=== PATIENT | female | born 2000 | race Caucasian/White ===

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

== ENCOUNTER 2022-02-04 12:54 | Emergency (ER) | payer MEDICAID, SELFPAY ==
[2022-02-04 12:55] VITALS: BP 160/94; PULSE 72; RESP 15; TEMP 36.7; O2SAT 98; BMI 37.8
--- NOTE | 2022-02-04 13:29 | RAD_ITS ---
STUDY: X-RAY - LEFT FOOT CLINICAL: Lateral left foot pain. TECHNIQUE: 3 view(s) of the foot. COMPARISON: None. FINDINGS: Normal talus, calcaneus, and tarsal bones. Normal visualized subtalar, talonavicular, calcaneocuboid, tarsal and tarsometatarsal articulations. Normal metatarsi. Normal metatarsophalangeal joint of the great toe. Normal tibial and fibular sesamoid bones. There is a bipartite fibular sesamoid. Normal interphalangeal joint of the great toe. Normal phalanges of the great toe. Normal second through fifth metatarsophalangeal joints. Normal interphalangeal joints and phalanges of the lesser toes. The soft tissue structures are unremarkable. RAD/Foot min 3 Views IMPRESSION: Unremarkable x-ray examination of the left foot. Electronically Signed: Negro Weinstein MD at 14:39 EDT ,
--- NOTE | 2022-02-04 13:29 | RAD_ITS ---
STUDY: X-RAY - LEFT ANKLE REASON FOR EXAM: Lateral left ankle pain. TECHNIQUE: 3 view(s) of the ankle. COMPARISON: None. FINDINGS: Normal visualized distal tibia and fibula. Normal medial and lateral malleoli. Normal tibiotalar articulation and ankle mortise. Normal visualized talus and calcaneus. The visualized subtalar, talonavicular, calcaneocuboid and tarsal articulations are normal. The soft tissue structures are unremarkable. RAD/Ankle min 3 Views IMPRESSION: Unremarkable x-ray examination of the left ankle. Electronically Signed: Negro Weinstein MD at 14:44 EDT ,
--- NOTE | 2022-02-04 13:30 | EDS_ITS ---
HPI History of Present Illness Chief Complaint: Lower Extremity Injury Informant: patient Onset/Context/Timing Onset: Yesterday Current Severity: Moderate Maximum Severity: Moderate Narrative Narrative: Patient present secondary to left foot pain and difficulty walking. She states she was playing video games last night and her left foot fell asleep. He seemed to be better and she walked to bed. When her dog jumped on her foot this morning she noted that her foot was painful and she had difficulty walking on it. She did take ibuprofen at 11 AM. [facility] Medical History PCOS (polycystic ovarian syndrome) Home Medications NK 04/10/18 [History Last Taken Unknown] Allergy/AdvReac Type Severity Reaction Status Date / Time No Known Allergies Allergy Verified 02/04/22 12:58 Social History Smoking Status: Current every day smoker tobacco type: e-cigarettes ROS ROS ED Constitutional Constitutional ED: Denies chills or fever(s) Eyes Eyes: Denies change in vision ENT ENT ED: Denies sore throat Cardiovascular Cardiovascular: Denies chest pain Respiratory/Chest Respiratory/Chest: Denies cough or dyspnea Gastrointestinal Gastrointestinal: Denies abdominal pain, diarrhea, nausea or vomiting Genitourinary Genitourinary ED: Denies dysuria Musculoskeletal Musculoskeletal: Reports arthralgias; Denies back pain Integumentary Denies rash Neurologic Neurologic: Denies headache(s) or weakness Allergic/Immunologic Allergic/Immunologic ED: Denies urticaria EXAM Physical Exam Const Vital Signs: 02/04/22 12:55 Temperature 98.1 F Temperature Source Temporal Pulse Rate 72 Respiratory Rate 15 Blood Pressure 160/94 H Blood Pressure Mean 116 Pulse Ox 98 Oxygen Delivery Method Room Air Positive well nourished and well developed General Appearance ED: well developed HEENT Reports normocephalic and head/scalp atraumatic Eyes PERRL and EOMs intact bilaterally Neck supple Chest Wall inspection of chest normal and palpation of chest normal Resp normal respiratory effort and clear to auscultation bilaterally Cardio regular rate and regular rhythm GI normal to inspection, nondistended, normoactive bowel sounds Palpation: soft Extremity normal to inspection Extremity Narrative: Tenderness on the lateral aspect of the left foot. No deformity, erythema, edema noted. Able to wiggle toes with normal sensation. Good cap refill. Neuro oriented x3 Sensorium / Orientation: alert Psych mental status grossly normal Skin no rashes or lesions noted MDM MDM MDM Narrative Medical decision making narrative: Left foot and ankle x-rays obtained. Radiography Diagnostic Testing: Clinical Impression(s) from Imaging Studies Ankle X-Ray 02/04/22 13:29 IMPRESSION: Unremarkable x-ray examination of the left ankle. Electronically Signed: Negro Weinstein MD at 14:44 EDT , Foot X-Ray 02/04/22 13:29 IMPRESSION: Unremarkable x-ray examination of the left foot. Electronically Signed: Negro Weinstein MD at 14:39 EDT , Treatment and Re-Evaluation Narrative: X-rays per my interpretation reveal no acute fracture. Radiologist interpretation is reviewed and agrees. Isaac wrap is applied to the left foot. She will take ibuprofen 800 mg 3 times a day at home for pain. She will be referred to Dr. Hernandez, on-call for podiatry if not improving. Discharge Plan Triage Chief Complaint: Lower Extremity Injury ED Provider: Annie Carney Dx/Rx/DC Orders Clinical Impression: Sprain of left foot Instructions: ED Foot Sprain Prescriptions: No Action NK RF: 0 Stand Alone Forms: Work Status Form Primary Care Provider: Ene Masterson NP Referrals: Chidi Hernandez DPM [STAFF PHYSICIAN] - As Needed Ene Masterson NP, CLIENT SERVICES REPRESENTATIVE-C [Primary Care Provider] - Disposition Disposition: Home, Self Care
[2022-02-04] MEDS: Acetaminophen 500 MG Tablet 1000 MG PO (13:37)
== END 2022-02-04 14:58 | disposition home or self-care (01) ==
PROVIDERS: Emergency Provider Emergency Medicine; PCP Nurse Practitioner Family; Visit Provider Emergency Medicine
DX: S93.602A Unspecified sprain of left foot, initial encounter (principal); F17.290 Nicotine dependence, other tobacco product, uncomplicated; E28.2 Polycystic ovarian syndrome; X58.XXXA Exposure to other specified factors, initial encounter
CPT/HCPCS: 73610; 73630; 99282

== ENCOUNTER 2024-02-11 04:03 | Inpatient (IN) | payer MEDICAID, SELFPAY ==
[2024-02-11] VITALS (23 sets, daily range): BP systolic 105–149; BP diastolic 45–84; PULSE 65–108; RESP 15–16; TEMP 36.3–36.9; O2SAT 87–100; BMI 36.8
[2024-02-11] MEDS: Lactated Ringers 1,000 ML 200 ML IV (04:00)
[2024-02-11] MEDS: Oxytocin 15 Units/NS 250ml 15 UNITS/250 ML IV.SOLN 334 UNITS IV (04:29)
[2024-02-11 04:42] LABS: Absolute Lymphocyte Count 3.27 X10^3/uL (0.83-4.51); Absolute Neutrophil Count 24.1 X10^3/uL (2.0-7.7); Basophil% 0.3 % (0-1); Eosinophil# 0.11 X10^3/uL; Eosinophils% 0.4 % (0-5); Hemoglobin 12.5 g/dL (12.0-15.0); Lymphocyte # 3.27 X10^3/ul (0.83-4.51); Lymphocyte % 11.1 % (19-41); Mean Corp Hgb Conc 32.9 g/dL (32-36); Mean Corpuscular Hgb 29.3 pg (27.0-32.0); Mean Corpuscular Volume 89.2 fL (81-99); Mean Platelet Vol. 14.1 fl (6.2-12.0); Monocyte% 6.1 % (0-10); NRBC Flagged by Analyzer 0 % (0-5); Neutrophil # 24.06 X10^3/uL (2.7-7.7); Neutrophil % 81.3 % (47-70); POSITIVE DIFFERENTIAL YES; POSITIVE MORPHOLOGY YES; Platelet Count 171 K/mm3 (150-450); RBC Distribution Width CV 13.6 % (11.6-14.6); RBC Distribution Width SD 44.3 fl (35.1-43.9); Red Blood Count 4.26 M/mm3 (4.2-5.4); White Blood Count 29.6 K/mm3 (4.4-11.0)
--- NOTE | 2024-02-11 04:53 | HP.PCM.OB_ITS ---
HPI - General General Date of Admission: 02/11/24 Date of Service: 02/11/24 Chief Complaint: labor HPI Narrative JUAN ANTONIO LEONARD, is a 23 F who presents in active labor. One PNV in [place]. EDC per patient 03/15/24. 9+ cm on arrival with SROM. Denies medications, medical problems, or drug use. Does smoke Maternal Data Information Final MEGAN: 03/15/24 Gestational age: 35+2 Doctor Who Attended Delivery: Josiah Moore [facility] Medical History Chlamydia infection affecting PCOS (polycystic ovarian syndrome) Home Medications ?Medication ?Instructions ?Recorded ?Last Taken ?Type NK 04/10/18 Unknown History Allergy/AdvReac Type Severity Reaction Status Date / Time No Known Allergies Allergy Verified 02/11/24 04:13 Surgical History (Updated 02/11/24 @ 05:03 by Melba Lancaster) History of surgery Social History Smoking Status: Current every day smoker tobacco type: e-cigarettes History 3 Elective abortions Hx Para 0 Spontaneous abortions Hx # Term Pregnancies Ectopic pregnancies Hx # Pregnancies Multiple births # of living children ROS ROS Narrative difficult to obtain Vital Signs Vital Signs Vital Signs: 02/11/24 04:08 02/11/24 04:08 02/11/24 04:09 Temperature Temperature Source Pulse Rate 104 H Respiratory Rate Blood Pressure 138/84 H BP Systolic 138 BP Diastolic 84 Pulse Ox 99 02/11/24 04:09 02/11/24 04:15 02/11/24 04:15 Temperature Temperature Source Pulse Rate 108 H 91 Respiratory Rate Blood Pressure BP Systolic BP Diastolic Pulse Ox 98 02/11/24 04:38 02/11/24 04:38 02/11/24 04:38 Temperature Temperature Source Tympanic Pulse Rate 83 Respiratory Rate Blood Pressure 146/66 H BP Systolic 146 BP Diastolic 66 Pulse Ox 02/11/24 04:38 02/11/24 04:38 02/11/24 04:39 Temperature 97.4 F L Temperature Source Pulse Rate 91 Respiratory Rate 16 Blood Pressure BP Systolic BP Diastolic Pulse Ox 02/11/24 04:39 02/11/24 04:44 02/11/24 04:44 Temperature Temperature Source Pulse Rate 86 Respiratory Rate Blood Pressure BP Systolic BP Diastolic Pulse Ox 100 100 02/11/24 04:49 02/11/24 04:49 Temperature Temperature Source Pulse Rate 82 Respiratory Rate Blood Pressure BP Systolic BP Diastolic Pulse Ox 100 Physical Exam Narrative patient uncomfortable and minimally cooperative. No obvious abnormalities 9 cm/100/0 gross rupture of membranes Const alert and oriented x3 HEENT normocephalic Head and Scalp: atraumatic Eyes PERRL Neck full ROM Resp normal respiratory effort GI Inspection: gravid external exam normal Skin Skin Narrative: lesions on lower extremities and lower abdomen Neuro moves all extremities Psych mental status grossly normal Labs Labs Labs: Antibody Screen Pending Hct 38.0 % (37-47) Hgb 12.5 g/dL (12.0-15.0) Syphilis Total Ab Pending Rubella IgG Antibody Pending Hep Bs Antigen Pending Hepatitis C Antibody Pending HIV 1&2 Antibody Pending Assessment & Plan (1) 35 weeks gestation of : (2) No care in current : QUALIFIERS: Trimester: third trimester Qualified Code(s): O09.33 - Supervision of with insufficient care, third trimester (3) Vacuum-assisted vaginal delivery: PLAN: Plan admitted for labor
[2024-02-11] MEDS: Oxytocin 15 Units/NS 250ml 15 UNITS/250 ML IV.SOLN 83 UNITS IV (05:05)
--- NOTE | 2024-02-11 05:17 | EX.PCM.OBRPT ---
Assessment & Plan (1) Vacuum-assisted vaginal delivery: (2) No care in current : QUALIFIERS: Trimester: third trimester Qualified Code(s): O09.33 - Supervision of with insufficient care, third trimester (3) 35 weeks gestation of : Maternal Data Information Final MEGAN: 03/15/24 Gestational age: 35+2 Doctor Who Attended Delivery: Josiah Moore Vaginal Delivery Maternal Presentation Maternal Presentation: Active Labor and Spontaneous Rupture of Membranes Maternal Presentation: Presented from home in active labor 9 cm and SROM Medical Reason for Induction: Maternal Medical Condition: list: (no care) Operative Information Date of Procedure: 02/11/24 Pre-Operative Diagnosis: active labor Post-Operative Diagnosis: same Surgery / Procedure Performed: Vacuum Assisted Vaginal Delivery (Kiwi applied at a +2 station, OA and pulled through one contractions No pop-off. Minimal effort required) Type of Anesthesia: None Estimated Blood Loss: 100 cc Time of Delivery: 04:27 Findings Description of Procedure: Patient presented to L&D in spontaneous labor with ROM. Admits to no care but did have an US that gives a good EDC of 03/15/24. She rapidly progressed to complete and struggled to push through the pain. HR down and difficult to trace with maternal movement. Patient consented to vacuum assisted delivery. At a +2 station the vacuum was applied with the vertex OA. With maternal effort the vacuum was used through one contraction with minimal effort. The vertex delivered followed by the posterior shoulder. There was copious thick meconium with delivery.The cord was immediately clamped and cut and the handed to the nurse and colloid mill operator waiting. Cord blood drained before a gas could be collected. The placenta delivered without difficulty. There were no lacerations that needed repair. Presentation: Vertex and MARISSA Amniotic Membrane Rupture Type: Spontaneous Time of Membrane Rupture: 4 hours before presentation Amniotic Fluid Description: Thick meconium Placental Delivery Description: Spontaneous Placenta Disposition: [facility] Cord Vessel Description: 3 Vessels Cord Entanglement: None Infant A Gender: Female (1 minute): 2 (5 minute): 5 (8 at 10) Delayed Cord Clamping: No Post Vaginal Delivery Medications Given After Delivery: IV Pitocin Episiotomy Description: None Laceration: None Complication Complications: None
[2024-02-11] MEDS: Acetaminophen 500 MG Tablet 1000 MG PO (07:26)
[2024-02-11 09:05] LABS: HIV - WCH Non-Reactive (Nonreactive); Rubella IgG Reactive (Nonreactive); Syphilis Antibodies Non-reactive
[2024-02-11] MEDS: Methylergonovine 0.2 MG/ML Ampul IM (09:12)
[2024-02-11 09:13] LABS: Hepatitis B Surface Antigen Non-Reactive (Nonreactive); Hepatitis C Antibody Non-Reactive (Nonreactive)
[2024-02-11] MEDS: fentaNYL 100 MCG/2 ML Ampul 50 MCG IV (09:58)
[2024-02-11] MEDS: 0.9% Saline Lock 10 ML Syringe IV ×2 (10:01→18:04)
--- NOTE | 2024-02-11 10:27 | PCM.PN.OB ---
Subjective Subjective CTSP for Bleeding. Has had 3 episodes of large clots and pain. S/p Pitocin and Methergine. Perineum intact. Uterus explored as much as feasible. Sweep with lap sponge and sponge stick. Small amount of dark clot removed. Speculum used to visualize the cervix. No bleeding noted from the cervix or cervical os. Fundus firm and no blood or additional clot expressed from uterus. Discussed with patient D&C if continues to bleed. Objective Data Objective Data Vital Signs: Vital Signs Temp Pulse Resp BP Pulse Ox O2 Del Method 98.3 F 80 15 134/79 H 98 Room Air 02/11/24 08:11 02/11/24 08:11 02/11/24 08:11 02/11/24 08:11 02/11/24 08:11 02/11/24 08:11 Oxygen Delivery Method Room Air Weight: 94.347 kg Body Mass Index (BMI) 36.8 Intake & Output: Intake and Output for Last 24 Hours 02/09/24 02/10/24 02/11/24 23:59 23:59 23:59 Intake Total 541.50 / 541.50 Output Total 1494 / 1494 Balance -952.50 / -952.50 Lab / Micro Data 02/11/24 04:00 Labs: Laboratory Results - last 24 hr 02/11/24 04:00: WBC 29.6 H, RBC 4.26, Hgb 12.5, Hct 38.0, MCV 89.2, MCH 29.3, MCHC 32.9, RDW Std Deviation 44.3 H, RDW Coeff of Rosaline 13.6, Plt Count 171, MPV 14.1 H, Immature Gran % (Auto) 0.800, Neut % (Auto) 81.3 H, Lymph % (Auto) 11.1 L, [place] % (Auto) 6.1, Eos % (Auto) 0.4, Baso % (Auto) 0.3, Absolute Neuts (auto) 24.1 H, Absolute Lymphs (auto) 3.27, Nucleated RBC % 0, Syphilis Total Ab Non-reactive, Hep Bs Antigen Non-Reactive, Hepatitis C Antibody Non-Reactive, HIV 1&2 Antibody Non-Reactive, Rubella IgG Antibody Reactive, Blood Type O POSITIVE, Antibody Screen NEGATIVE Assessment & Plan (1) Vacuum-assisted vaginal delivery: (2) No care in current : QUALIFIERS: Trimester: third trimester Qualified Code(s): O09.33 - Supervision of with insufficient care, third trimester (3) 35 weeks gestation of : (4) hemorrhage: QUALIFIERS: hemorrhage type: other immediate Qualified Code(s): O72.1 - Other immediate hemorrhage
[2024-02-11 11:16] LABS: Amphetamine Urine VISTA POSITIVE (<1000 ng/mL); Barbiturate Urine VISTA NEGATIVE (< 200 ng/mL); Benzodiazepine Urine VISTA NEGATIVE (< 200 ng/mL); Cocaine Urine VISTA NEGATIVE (< 300 ng/mL); Ecstacy Urine VISTA NEGATIVE (< 500 ng/mL); Methadone Urine VISTA NEGATIVE (< 300 ng/mL); PCP Urine VISTA NEGATIVE (< 25 ng/mL); THC Urine VISTA NEGATIVE (< 50 ng/mL); Vista UDS pH Range 6
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
[2024-02-11] MEDS: LACTATED RINGERS 500 ML 999 ML IV (12:15)
[2024-02-11] MEDS: Cefazolin 1 GM/50 ML BAG IV ×2 (12:53→18:05)
[2024-02-11 18:38] LABS: Hematocrit 25.4 % (37-47); Hemoglobin 8.3 g/dL (12.0-15.0); Mean Corp Hgb Conc 32.7 g/dL (32-36); Mean Corpuscular Hgb 29.5 pg (27.0-32.0); Mean Corpuscular Volume 90.4 fL (81-99); Mean Platelet Vol. 14.3 fl (6.2-12.0); Platelet Count 158 K/mm3 (150-450); RBC Distribution Width CV 13.5 % (11.6-14.6); RBC Distribution Width SD 44.8 fl (35.1-43.9); Red Blood Count 2.81 M/mm3 (4.2-5.4); White Blood Count 23.5 K/mm3 (4.4-11.0)
[2024-02-12] MEDS: Cefazolin 1 GM/50 ML BAG IV ×2 (00:01→06:05)
[2024-02-12 04:07] VITALS: BP 103/57; PULSE 57; RESP 16; TEMP 37.1; O2SAT 100
--- NOTE | 2024-02-12 06:29 | PCM.PN.OB ---
Subjective Subjective No lightheadedness or dizziness. Minimal bleeding. No pain. Not breast feeding. Baby in SCN. On last dose of antibiotics. Desires DC Objective Data Objective Data Vital Signs: Vital Signs Temp Pulse Resp BP Pulse Ox O2 Del Method 98.8 F 57 L 16 103/57 L 100 Room Air 02/12/24 04:07 02/12/24 04:07 02/12/24 04:07 02/12/24 04:07 02/12/24 04:07 02/12/24 04:07 Oxygen Delivery Method Room Air Weight: 94.347 kg Body Mass Index (BMI) 36.8 Intake & Output: Intake and Output for Last 24 Hours 02/10/24 02/11/24 02/12/24 23:59 23:59 23:59 Intake Total 1141.50 / 1141.50 50 / 50 Output Total 1544 / 1544 Balance -402.50 / -402.50 50 / 50 Lab / Micro Data 02/11/24 18:00 Labs: Laboratory Results - last 24 hr 02/11/24 04:00: Syphilis Total Ab Non-reactive, Hep Bs Antigen Non-Reactive, Hepatitis C Antibody Non-Reactive, HIV 1&2 Antibody Non-Reactive, Rubella IgG Antibody Reactive, Blood Type O POSITIVE, Antibody Screen NEGATIVE 02/11/24 10:30: Urine Opiates Screen NEGATIVE, Urine Methadone Screen NEGATIVE, Ur Barbiturates Screen NEGATIVE, Ur Phencyclidine Scrn NEGATIVE, Ur Amphetamines Screen POSITIVE H, MDMA (Ecstasy) Screen NEGATIVE, U Benzodiazepines Scrn NEGATIVE, Urine Cocaine Screen NEGATIVE, U Cannabinoids Screen NEGATIVE, Ur Drug Screen Comment 02/11/24 18:00: WBC 23.5 H, RBC 2.81 L, Hgb 8.3 L, Hct 25.4 L, MCV 90.4, MCH 29.5, MCHC 32.7, RDW Std Deviation 44.8 H, RDW Coeff of Rosaline 13.5, Plt Count 158, MPV 14.3 H Micro: Microbiology 02/11/24 15:40 Urine, Clean Catch Chlamydia trachomatis (PCR) - Final 02/11/24 15:40 Urine, Clean Catch Neisseria gonorrhoeae (PCR) - Final Physical Exam Const alert and no apparent distress Narrative: Fundus firm, below umbilicus. Assessment & Plan (1) Vacuum-assisted vaginal delivery: (2) hemorrhage: QUALIFIERS: hemorrhage type: other immediate Qualified Code(s): O72.1 - Other immediate hemorrhage (3) No care in current : QUALIFIERS: Trimester: third trimester Qualified Code(s): O09.33 - Supervision of with insufficient care, third trimester
--- NOTE | 2024-02-12 06:51 | PCM.DC.SUM ---
Providers Date of Admission: 02/11/24 Date of Discharge: 02/12/24 Primary Care Physician: TRINI ThayerC Reason For Visit: LABOR Diagnosis Discharge Diagnosis (1) Vacuum-assisted vaginal delivery: Status: Acute Code(s): Z37.9 - Outcome of delivery, unspecified (2) hemorrhage: Status: Acute Code(s): O72.1 - Other immediate hemorrhage Qualifiers: hemorrhage type: other immediate Qualified Code(s): O72.1 - Other immediate hemorrhage (3) No care in current : Status: Acute Code(s): O09.30 - Supervision of with insufficient care, unspecified trimester Qualifiers: Trimester: third trimester Qualified Code(s): O09.33 - Supervision of with insufficient care, third trimester Plan admitted for labor Medications at Discharge Home Medications NK 04/10/18 Hospital Course Operations None Procedures None Summary of Care Provided Minutes Spent on Discharge: 20 Hospital Course: Admitted in spontaneous labor. No care. VAVD with hemorrhage. Uterine exploration for retained POC. Received 24 hours of IV antibiotics. Baby in SCN. Bottle feeding. Physical Exam Const alert and no apparent distress Narrative: Fundus firm, below umbilicus. Weight / BMI Weight Weight: 94.347 kg Body Mass Index (BMI) 36.8 ABG / Lab / Microbiology Data 02/11/24 18:00 Laboratory: Laboratory Results - last 24 hr 02/11/24 04:00: Syphilis Total Ab Non-reactive, Hep Bs Antigen Non-Reactive, Hepatitis C Antibody Non-Reactive, HIV 1&2 Antibody Non-Reactive, Rubella IgG Antibody Reactive, Blood Type O POSITIVE, Antibody Screen NEGATIVE 02/11/24 10:30: Urine Opiates Screen NEGATIVE, Urine Methadone Screen NEGATIVE, Ur Barbiturates Screen NEGATIVE, Ur Phencyclidine Scrn NEGATIVE, Ur Amphetamines Screen POSITIVE H, MDMA (Ecstasy) Screen NEGATIVE, U Benzodiazepines Scrn NEGATIVE, Urine Cocaine Screen NEGATIVE, U Cannabinoids Screen NEGATIVE, Ur Drug Screen Comment 02/11/24 18:00: WBC 23.5 H, RBC 2.81 L, Hgb 8.3 L, Hct 25.4 L, MCV 90.4, MCH 29.5, MCHC 32.7, RDW Std Deviation 44.8 H, RDW Coeff of Rosaline 13.5, Plt Count 158, MPV 14.3 H Microbiology: Microbiology 02/11/24 15:40 Urine, Clean Catch Chlamydia trachomatis (PCR) - Final 02/11/24 15:40 Urine, Clean Catch Neisseria gonorrhoeae (PCR) - Final D/C Instructions May resume sexual activity in: 6 weeks Please Follow Up With: Lulú Roman MD When: Follow up with our office in 1-2 and 6 weeks or as needed. [phone] Meaningful Use Info Meaningful Use Meaningful Use Diagnoses (Choose all that apply): None applicable Ischemic Stroke Statin Dosing Therapy Reference: STATIN DOSE THERAPY REFERENCE: * Patients > 75 years receive moderate or high dose statin therapy. * Patients 75 years or YOUNGER should receive HIGH intensity statin dose unless contraindicated. You will be required to document reason for non-treatment if statin daily dose does not meet guidelines. HIGH DOSE STATIN THERAPY DAILY Atorvastatin > than or = to 40 mg Rosuvastatin > than or = to 20 mg Amlodipine + Atorvastatin > than or = to 2.5/40 mg Ezetimibe + Simvastatin 10/80 mg Simvastatin 80mg Discharge Plan Admission Admit Date/Time: 02/11/24 04:03 Primary Reason for Your Visit: Labor Attending Provider: Annie Zurita Primary Care Provider: Ene Masterson NP Discharge Orders/Prescriptions Prescriptions: No Action NK Referrals / Follow Up: Ene Masterson NP, BLEACH MACHINE OPERATOR-C [Primary Care Provider] - Disposition Disposition (needs filled in before D/C Order can be placed): Home, Self Care
[2024-02-12 09:00] VITALS: BP 99/62; PULSE 69; RESP 15; TEMP 36.5; O2SAT 100
--- NOTE | 2024-02-12 11:21 | NURSING ---
1000 pt into SCN to see infant 1110 pt wants to go out to smoke, offered smoking cessation. pt refused pt signed risk assumption form and went outside against medical advice
--- NOTE | 2024-02-12 12:54 | NURSING ---
1240 pt states she has been depressed and feeling down for the last 2 months. discussion with pt about the possibility of starting medication. pt states that she has tried 2 different types of depression medication in the past and does not like how they make her feel. pt unable to recall the names of the medication she has tried in the past. pt does not want to try any medication at this time but is open for discussion if she feels worse.
[2024-02-12 13:15] VITALS: BP 98/46; PULSE 63; RESP 15; TEMP 36.6
[2024-02-12 20:50] VITALS: BP 103/41; PULSE 63; RESP 16; TEMP 36.7
[2024-02-13 02:44] VITALS: BP 120/59; PULSE 76; RESP 14; TEMP 36.5; O2SAT 97
--- NOTE | 2024-02-13 08:25 | PCM.PN.OB ---
Subjective Subjective Patient sleeping. Did not wake. Bottle feeding. No Issues with BP. Baby in SCN. Objective Data Objective Data Vital Signs: Vital Signs Temp Pulse Resp BP Pulse Ox O2 Del Method 97.7 F L 76 14 120/59 L 97 Room Air 02/13/24 02:44 02/13/24 02:44 02/13/24 02:44 02/13/24 02:44 02/13/24 02:44 02/13/24 02:44 Oxygen Delivery Method Room Air Weight: 94.347 kg Body Mass Index (BMI) 36.8 Intake & Output: Intake and Output for Last 24 Hours 02/11/24 02/12/24 02/13/24 23:59 23:59 23:59 Intake Total 1141.50 / 1141.50 100 / 100 Output Total 1544 / 1544 400 / 400 Balance -402.50 / -402.50 -300 / -300 Lab / Micro Data 02/11/24 18:00 Micro: Microbiology 02/11/24 15:40 Urine, Clean Catch Chlamydia trachomatis (PCR) - Final 02/11/24 15:40 Urine, Clean Catch Neisseria gonorrhoeae (PCR) - Final Assessment & Plan (1) hemorrhage: QUALIFIERS: hemorrhage type: other immediate Qualified Code(s): O72.1 - Other immediate hemorrhage (2) Vacuum-assisted vaginal delivery: (3) No care in current : QUALIFIERS: Trimester: third trimester Qualified Code(s): O09.33 - Supervision of with insufficient care, third trimester (4) 35 weeks gestation of :
[2024-02-13 09:52] VITALS: BP 112/64; PULSE 73; RESP 16; TEMP 36.6
--- NOTE | 2024-02-13 09:54 | NURSING ---
0845 pt sitting in bed states that dietary brought her the wrong food tray, she is waiting for them to bring her the right tray when asked by this nurse about the 0900 feed for baby in the SCN pt stated that she is not going over to feed the baby because she is waiting on her food and she needs food and sleep.
--- NOTE | 2024-02-13 15:28 | CASEMGMT ---
Social Work Assessment Labor and Delivery Unit Patient Address:[address] [place] [address] Phone number: [phone] Date of Referral: 02/11/24 Time of Referral:? [phone] Referred By: Annie Zurita Date of Intervention: ?02/13/24? Time of Intervention:? 1300 Reason for Referral:? other Sw completed chart review and acknowledges social work consult. Sw presented to bedside and introduced self to mother of baby (LUDA Guidry) and completed psychosocial assessment. History obtained from: medical records, MOB Household composition: DOROTHY states that she, father of baby (LUCY Parker) and her mother have been residing together in a trailer since December. DOROTHY states that prior to that she was in a trap house where they were producing methamphetamine and she was unable to get out of it. MOB states that the trailer is safe and secure. There were some electrical needs but the landlord has been taking care of it. Patient's parent/guardian status:? ?MOB states that she and SIA have always known each other. They started dating one another in April. DOROTHY denies any issues of domestic violence or intimate partner violence. DOROTHY states that SIA has been incarcerated for a large portion of her , but he is a big support to her. This is first baby for DOROTHY and SIA together, but this is SIA's 5th child- he does not custody, visitation or involvement with his other 4 children. Medical History: ?DOROTHY is 23 year old female who is 3, para 0- now 1 following labor and delivery of . DOROTHY received limited care, only attended three appointments with Bobbi Saucedo at [facility] in [place].DOROTHY presented to hospital in active labor and delivered baby on 02/11/24 at 35 weeks gestation via vaginal delivery. Baby girl, named Yadira Villanueva, was born weighing 5lb 8oz with apgars of 2, 5, and 8 (at one, five and ten minutes of life, respectfully). Baby was transferred to [facility] due to prematurity, respiratory distress and monitoring for JOSE LUIS. DOROTHY states that she has not chosen a explosive ordnance manager yet- but is planning on using [facility] in [place]. Baby has been scoring all 3's using Eat Sleep and Console scoring to assess for signs of withdrawal. Baby has not been able to eat affectively so at this time all of her feeds are being given using an NG. No discharge date established at this time. Educational Status:? DOROTHY states that she completed 11th grade, and FORahat completed the 8th grade. Financial Status: FOB is employed building [employer] with [employer]. MOB is unemployed. Infant Supplies:?? DOROTHY states that she had a baby shower on the day that baby was born and as a result has all the necessary baby supplies, including: car seat, safe sleep space, clothes, diapers and wipes. Childcare Caregiver(s):? DOROTHY plans to be the primary caregiver to baby along with help from FOB and maternal grandma when necessary. Transportation:??DOROTHY states that her license is currently suspended until she pays a [address] SIA does not [address]. Sw assisted DOROTHY in arranging transportation to and from the hospital once she is discharged. Sw provided DOROTHY with number of [facility] Transportation assistance to call to arrange transportation to and from the hospital if MOB is to be discharged and no longer hotel status. Programs/Agencies Involved: ?DOROTHY is connected to [facility] for insurance, DOROTHY also has WIC and knowledge of food pantries that she can utilize if necessary. DOROTHY states that she is unable to apply for SNAP as long as her mom is included in her household. ?? Children Services/Legal Issues:??No former history of involvement with MOB, potentially prior involvement with SIA and his other 4 children- however MOB unaware of history. - Sw informed DOROTHY of need for to contact [facility] due to her drug use during , mental health history and social issues (housing, transportation- etc.) MOB expressed understanding. Behavioral Health Issues: ??Mental Health History:?MOB states that SIA does not have any mental health history. MOB states that she has been diagnosed with anxiety and depression and was previously connected to mental health services. MOB states that she is untrusting of everyone except for her mom and FOB. MOB states that this includes hospital staff and mental health professionals. Sw asked MOB if she is receptive to getting connected to mental health resources if it is a requirement of children services, and MOB said no. DOROTHY stated that she does not want to be on medication because she does not like how it makes her feel. MOB completed PHQ2, PHQ9 (score of 14) and [place] Depression Scale. MOB [place] score was 18- support and education provided. Sw explained to DOROTHY the threshold is high for her to experience symptoms of depression and anxiety. MOB expressed understanding but states that she is not open to talking to a mental health professional about this issue. Shannon provided DOROTHY with resources that included a list of [facility] and informed MOB of IOP available at [facility]. DOROTHY denies thoughts of suicidality at this time, but admits that historically she has had thoughts of suicide up until the discovery of her . MOB states that when she had thoughts of hurting herself, she also had a plan- that included overdosing or wrecking her car. ? 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 MOB states that there were times brief times of sobriety throughout the . DOROTHY states that she would stay at the trap house off and on starting in April. At the beginning she was able to come and go as she pleased, however as time went on she and her mother were not able to leave the house. When asked why they could not leave, DOROTHY stated that the house was deplorable and they could not get through it, and the other residents of the home were smoking or producing meth and it was in the air when they left the room that they were staying in. MOB states that they were going to the restroom in [place] cups and then throwing them out the window. DOROTHY states that she had communicated with her aunt and a police specialist in [facility] who eventually got them out of there. ? Family History:?MOB denies family history of substance use, but does report that SIA also has drug use history, with a relapse in December of this year. ??? Drug Screens: ?MOB urine screen at time of admission was positive for methamphetamine. Baby urine was negative, meconium still pending. ? Family/Social Stressors:? MOB admitted with mental health history (untreated) who is at threshold of experiencing anxiety, depression or psychosis. MOB also with significant substance use history, which includes residing/ being held in a house from August 03- January 02 during the production of methamphetamine. MOB states that she was held against her will. MOB and FOB have been in a relationship for 10 months. FOB with significant criminal history which includes fleeing scene of an accident and other charges. SIA has spent significant amount of time incarcerated including the majority of DOROTHY's . DOROTHY only attended three appointments during . DOROTHY has secured housing which SIA is affording to pay rent for now that he has been released from alf and has obtained employment. MOB struggling with coping with her mental health and current admission to hospital with baby admitted to [facility]. - DOROTHY reports that she finds it difficult to be in the [facility] where she is not free to parent her baby the way she wants to parent. MOB states that she feels as though someone is watching her the whole time, judging her. DOROTHY states that her baby saved her life and she would never want to hurt her. DOROTHY states that because she does not trust anyone at the hospital she does not sleep well and wishes that she could go home to sleep. When asked why she is unable to do that, DOROTHY states Because if I leave than Children Services will take my baby from me. Sw explained to MOB that although this sw'er has to make a referral to Children Services, and their involvement is imminent, they would not remove the baby from her care just because she went home. Sw explained what is and what is not appropriate regarding time away from hospital when her baby is still admitted to [facility]. Sw explained to DOROTHY that if she is not sleeping at the hospital and is not taking care of herself- whether it be physically, emotionally or mentally- than she is not the best version of herself and right now her baby needs the best version of her. Sw informed DOROTHY that it is appropriate for her to go home, take a shower, get some rest, eat a healthy meal and then return to the hospital to be involved and active in the care of her . Sw informed MOB that it is not healthy to go home, use drugs and not return to the hospital. Sw explained that when sw talks to Children Services she also informs them of the amount of involvement and the type of interactions that MOB has with her baby. Sw told MOB that if going home and getting some rest and taking a shower and then returning to hospital is what MOB needs to provide good care to her baby, than that is appropriate. MOB expressed understanding and then decided to be discharged. DOROTHY plans to go home tonight, sleep and then return to bedside at 9am tomorrow, and will leave at 3p tomorrow (hospital transportation services assisting with this- transport is arranged for these times). Support Systems: MOB states that FOB and her mom are her biggest supports. Depression/Shaken Baby/Safe Sleeping:? Sw spoke to MOB at length regarding signs and symptoms of baby blues and depression, anxiety and psychosis. MOB expressed understanding, but continues to state that she does not trust anyone to talk to about this. Sw provided MOB with literature and list of [facility] resources that are available to her should she change her mind. Sw informed MOB that getting connected to mental health resources may be part of her safety plan that Children Services puts into place. Sw educated MOB on shaken baby prevention and ABCs of safe sleep. MOB expressed understanding. ASSESSMENT:? MOB at first defensive and somewhat argumentative with sw about the need for mental health services. MOB resistant to getting connected even though she is struggling with her mental health. MOB with substance use throughout - referral to [facility] to follow. Baby admitted to [facility] due to prematurity, respiratory distress, feeding difficulties and being scored using ESC every three hours for any signs of withdrawal due to maternal drug use during . MOB and FOB have been together for 10 months- majority of that time FOB was incarcerated. MOB has limited supports and limited access to transportation. Safe Plan of Care for related to substance use: MOB states that she does not have intentions of using. MOB educated on refraining from substance use. MOB also educated on how substance use during affects baby, and need to monitor for withdrawal. ? PLAN:? Sw to make referral to [facility] and will assist with any discharge planning needs. ?No other services requested or indicated. Jaimee Robles, MOLD RELEASE WORKER, [employer]
--- NOTE | 2024-02-13 17:38 | NURSING ---
1730 pt going to hotel status after dinner- pts mother at bedside with pt-
--- NOTE | 2024-02-14 09:50 | CASEMGMT ---
Social Work Progress Note Labor and Delivery Special Care Nursery Date of Intervention: 02/14/24 Time of Intervention: 909 Reason for follow-up:Phone contact: [facility] Summary of Family/Staff/Agency Contact: HISTORY: DOROTHY's baby is now 3 day old female who remains admitted to [facility] due to: respiratory distress, feeding difficulties and monitoring for withdrawal due to drug exposure (mother of baby, DOROTHY- Brea tested positive for methamphetamines at delivery, baby meconium still pending). - Shannon completed chart review and notes that ESC was discontinued due to MOB denying opiate use, baby scores had all been 3's. - Baby continues to require NG to complete ordered volume. DOROTHY did present to bedside for the 299 feed, at which time baby took 12mL with assistance of bedside RN. Bedside RN states that DOROTHY still needs some education on how to properly feed baby so that PO feeds will be successful. - DOROTHY has been discharged from labor and delivery hospital, but remains on Hotel status. She is able to come and go as she needs. Shannon made referral to [facility]. Shannon spoke to [facility] screener, Dahiana Begum. Sw informed Ms. Begum of concerns regarding MOB and FOB substance use history, including use during and being trapped in a home producing methamphetamine August 03- January 02. Mental health for both parents- MOB refusing to seek mental health treatment even though recommended. Shannon stated that concern for MOB ability to provide care to her baby without engaging in regular mental health services and support. MOB with symptoms of agoraphobia as she reports that she does not want to leave her home or go anywhere. DOROTHY does not drive, she lost her license following a high speed tony with her brother last fall. Transportation is a big barrier for DOROTHY. FOB has significant legal history- was incarcerated for 7 months during MOB . ASSESSMENT: Baby still admitted to [facility] due to respiratory distress, feeding difficulties and being monitored for withdrawal due to substance exposure. DOROTHY stayed at labor hospital overnight and was active in baby care for the 0 feed. MOB still needing education on proper PO feeds. - Referral made to [facility] due to ongoing social concerns with MOB and FOB. PLAN: Continue to follow patient and family. Sw will coordinate discharge planning needs with medical staff and [facility]. .
[2024-02-14 15:09] LABS: Amphetamine Positive (.); Amphetamine Ur Confirm Positive (.); AmphetamineGC/MS Conf 2917 ng/mL (Cutoff=500); Methamphetamines Positive (.)
== END 2024-02-13 17:46 | disposition home or self-care (01) | DRG 560 ==
PROVIDERS: Admitting Provider Obstetrics & Gynecology; PCP Nurse Practitioner Family; Visit Provider Obstetrics & Gynecology
DX: O60.03 Preterm labor without delivery, third trimester (principal); Z37.0 Single live birth; O72.1 Other immediate postpartum hemorrhage; F17.210 Nicotine dependence, cigarettes, uncomplicated; E28.2 Polycystic ovarian syndrome; O99.334 Smoking (tobacco) complicating childbirth; O77.0 Labor and delivery complicated by meconium in amniotic fluid; Z3A.35 35 weeks gestation of pregnancy; O99.284 Endocrine, nutritional and metabolic diseases complicating childbirth
CPT/HCPCS: 59025; 59050; 80307; 85025; 85027; 86703; 86762; 86780; 86803; 86850; 86900; 86901; 87340; 87491; 87591; 99221; J7120; A4216; G0378